=== PATIENT | male | born 1990 | race Caucasian/White ===

== ENCOUNTER 2022-05-17 18:24 | Inpatient (IN) | payer OTHER, SELFPAY ==
[2022-05-17 19:04] VITALS: BP 123/87; PULSE 93; RESP 18; TEMP 36.9; O2SAT 97; BMI 27.8
--- NOTE | 2022-05-17 19:06 | ED_ITS ---
HPI - Psych General Chief Complaint: Psychiatric Symptoms <KATE Gibson Last Filed: 05/17/22 19:12> Stated Complaint: crisis eval sent from [facility] [place] <KATE Gibson Last Filed: 05/17/22 19:12> Time Seen by Provider: 05/17/22 19:28 <KATE Gibson Last Filed: 05/17/22 19:12> Source: patient <KATE Elizalde Last Filed: 05/17/22 20:42> Mode of arrival: ambulatory <KATE Elizalde - Last Filed: 05/17/22 20:42> Limitations: no limitations <KATE Elizalde Last Filed: 05/17/22 20:42> History of Present Illness HPI Narrative: 32-year-old male presents with anxiety, depression coming from a crisis center in [place] he was advised to come in. Patient tells me has been feeling this way for a while. Unable to tell me what is making this worse but also tells me he does not want to talk about his feelings. Denies visual, auditory and tactile hallucinations. Denies suicidal and homicidal ideation. Not currently taking any medications for this. Has never required psychiatric admission. Patient tells me he drinks daily to cope with his problems, drinks 1 bottle of vodka a day, never had a history of alcohol withdrawal. Last drink was prior to arrival in to the hospital. Denies drugs, tobacco. No medical complaints today. <KATE Elizalde Last Filed: 05/17/22 20:42> Related Data Home Medications: Home Medications Medication Instructions Recorded Confirmed No Known Home Meds 05/17/22 05/17/22 <KATE Gibson Last Filed: 05/17/22 19:12> Allergies/Adverse Reactions: Allergies Allergy/AdvReac Type Severity Reaction Status Date / Time No Known Allergies Allergy Verified 05/17/22 19:04 [No Known Allergies*] <KATE Gibson Last Filed: 05/17/22 19:12> Review of Systems Review of Systems: Constitutional : No Fever, No Chills ENT/Mouth : No Ear Pain, No Nasal Congestion, No sore throat Eyes: No Eye Pain, No Swelling, No Redness Cardiovascular : No Chest Pain, No SOB Respiratory : No Cough, No Sputum, No Dyspnea Gastrointestinal : No Nausea, No Vomiting, No Diarrhea, No Hematochezia, No Melena Genitourinary : No Dysuria, No Urinary Frequency, No Hematuria Musculoskeletal : No Myalgias Skin : No Skin Lesions, No rash Neuro : No Weakness, No Numbness, No Paresthesias, No Dizziness, No Headache Psych : positive Anxiety, positive Depression, No SI/HI Heme/Lymph: No Lymphadenopathy Endocrine : No Polyuria, No Polydipsia All other systems reviewed and are negative <KATE Elizalde - Last Filed: 05/17/22 20:42> Yes all other systems are reviewed and are negative <KATE Elizalde - Last Filed: 05/17/22 20:42> [facility] Past Medical History Attestation statement: The following information was validated with the patient. <KATE Elizalde - Last Filed: 05/17/22 20:42> Source: old records reviewed and nursing notes reviewed <KATE Elizalde - Last Filed: 05/17/22 20:42> Social History Social History: Social History Advance Directives: No Advance Directives Information Provided: No <KATE Gibson - Last Filed: 05/17/22 19:12> Physical Exam Vital Signs: Vital Signs: Last Vital Signs Temp 98.4 F 05/17/22 19:04 Pulse 93 05/17/22 19:04 Resp 18 05/17/22 19:04 BP 123/87 05/17/22 19:04 Pulse Ox 97 05/17/22 19:04 O2 Del Method 05/17/22 19:04 BMI result Body Mass Index 27.8 <KATE Gibson - Last Filed: 05/17/22 19:12> Vital Signs: Last Vital Signs Temp 98.4 F 05/17/22 19:04 Pulse 93 05/17/22 19:04 Resp 18 05/17/22 19:04 BP 123/87 05/17/22 19:04 Pulse Ox 97 05/17/22 19:04 O2 Del Method 05/17/22 19:04 BMI result Body Mass Index 27.8 vss <KATE Elizalde - Last Filed: 05/17/22 20:42> Appearance: Alert.? Oriented X3.? No acute distress.? Head: Normocephalic, atraumatic, no step-offs or deformities Eyes: Pupils equal, round and reactive to light.? Neck: Normal inspection.? Neck supple.? CVS: Normal heart rate and rhythm.? Pulses normal.? Respiratory: No respiratory distress.? Breath sounds normal.? Abdomen: Soft and nontender.? Skin: Skin warm and dry.? Normal skin color.? Normal skin turgor.? Extremities: No lower extremity edema.? No calf ttp. 5/5 strength to bilateral upper and lower extremities Back: No midline tenderness, no C-spine tenderness, full range of motion, no CVA tenderness bilaterally Neuro: Oriented X 3.? No motor deficit.? No sensory deficit. CN 2-12 intact <KATE Elizalde - Last Filed: 05/17/22 20:42> Course Course Course Narrative: RME- 19:07PM - 32yoM presenting to the ER after he was sent from [facility] and she could be requesting for ?more help?. Patient is very vague reports he does not really want to talk about in triage. Reports increased anxiety/depression. Denies any SI/HI/auditory or visual hallucinations thoughts of self-injury. Reports he drinks alcohol. Reports he occasionally uses cocaine last use on Tuesday. Used to take meds for psoriasis otherwise does not take any other medication and is not currently on medications. Currently homeless at this time. Currently unemployed for months. Noted to have psoriasis rash to neck and arms. No signs of infection. Plan: Labs, EKG patient will be sent back to the waiting room to Be evaluate in the behavior health thoughts <KATE Gibson - Last Filed: 05/17/22 19:12> Reevaluation(s) Reevaluation #1: CBC within normal limits. Chemistry with no acute electrolyte abnormalities requiring intervention. UA clean. Patient is positive for cocaine, marijuana. Ethanol level of 101. Patient will be in inpatient bed search. [facility] protocol ordered to ensure patient does not going to alcohol withdrawal. At this time no signs of acute alcohol withdrawal. Time observation was started patient calm cooperative no acute distress. <KATE Elizalde - Last Filed: 05/17/22 20:42> Time: 20:41 <KATE Elizalde - Last Filed: 05/17/22 20:42> Medical Decision Making Medical Decision Making [facility] Narrative: 2034 This is a 32-year-old male presenting with anxiety, depression, alcohol abuse. Physical exam benign. Likely anxiety, depression. Possible alcohol intoxication. Unlikely alcohol withdrawal. I do not suspect metabolic derangements. I was informed by the behavioral health team that patient is a voluntary bed search. Plan medical clearance evaluation by the behavioral health team. <KATE Elizalde - Last Filed: 05/17/22 20:42> Differential Diagnosis Differential Diagnoses: The differential diagnosis associated with the presentation includes <KATE Elizalde - Last Filed: 05/17/22 20:42> Likely anxiety, depression. Possible alcohol intoxication. Unlikely alcohol withdrawal. I do not suspect metabolic derangements. <KATE Elizalde - Last Filed: 05/17/22 20:42> Admission/Observation Consideration of admission/observation: Escalation of care including admission/observation considered <KATE Elizalde - Last Filed: 05/17/22 20:42> Lab Data [facility] Lab Attestation statement: I reviewed the patient's lab results. <KATE Elizalde - Last Filed: 05/17/22 20:42> Result Diagrams: 05/17/22 19:39 05/17/22 19:39 <KATE Gibson - Last Filed: 05/17/22 19:12> Labs: Lab Results 05/17/22 05/17/22 05/17/22 Range/Units 19:39 19:39 19:39 WBC 7.2 (4.8-10.8) X10*3/uL RBC 5.02 (4.60-5.80) X10*6/uL Hgb 15.7 (14.0-18.0) g/dl Hct 44.9 (42.0-52.0) % MCV 89.4 (80.0-98.0) fL MCH 31.3 (27.0-33.0) pg MCHC 35.0 (31.0-36.0) g/dl RDW 12.4 (11.0-16.0) % Plt Count 344 (160-400) X10*3/uL MPV 8.7 L (9.4-12.4) fL Immature Gran % (Auto) 0.3 (0.0-0.4) % Neut % (Auto) 62.2 (45-73) % Lymph % (Auto) 29.8 (20-40) % Cache % (Auto) 6.1 (2-11) % Eos % (Auto) 1.2 (0-4) % Baso % (Auto) 0.4 (0-2) % Lymph # (Auto) 2.2 (1.2-4.9) X10*3/uL Cache # (Auto) 0.4 (0.1-1.2) X10*3/uL Eos # (Auto) 0.1 (0.0-0.4) X10*3/uL Baso # (Auto) 0.0 (0.0-0.2) X10*3/uL Abs Immat Gran (auto) 0.02 (0.00-0.03) X10*3/uL Absolute Neuts (auto) 4.5 (2.0-8.3) x10*3/uL Absolute Nucleated RBC 0.000 (0.0-0.012) X10*3/uL Nucleated RBC % (auto) 0.0 (0.0-0.2) /100WBC PT 10.3 (10.0-13.1) SEC INR 0.9 (0.9-1.1) Sodium 143 (135-145) mmol/L Potassium 3.8 (3.3-5.1) mmol/L Chloride 107 (96-108) mmol/L Carbon Dioxide 26 (22-29) mmol/L Anion Gap 14 (12-20) BUN 5 L (9-16) mg/dL Creatinine 1.12 (0.5-1.4) mg/dL Estim Creat Clear Calc 108.0 Estimated GFR > 60 Random Glucose 84 (60-115) mg/dL Calcium 9.2 (8.4-10.2) mg/dL Magnesium 2.1 (1.6-2.6) mg/dL Total Bilirubin 0.5 (0.0-1.0) mg/dL AST 21 (5-37) U/L ALT 18 (0-40) U/L Alkaline Phosphatase 105 (39-117) U/L Total Protein 7.1 (6.5-8.0) g/dL Albumin 4.2 (3.5-5.0) g/dL Lipase 15 (8-78) U/L Urine Color Urine Appearance Urine pH (5.0-9.0) Ur Specific [place] (1.005-1.025) Urine Protein (Neg-Trace) mg/dL Urine Glucose (UA) (Negative) mg/dL Urine Ketones (Negative) mg/dL Urine Blood (Negative) Urine Nitrite (Negative) Ur Leukocyte Esterase (Negative) Urine Opiates Screen (Not Detect) Urine Fentanyl Screen (Not Detect) Ur Barbiturates Screen (Not Detect) Ur Phencyclidine Scrn (Not Detect) Ur Amphetamines Screen (Not Detect) U Benzodiazepines Scrn (Not Detect) Urine Cocaine Screen (Not Detect) U Marijuana (THC) Screen (Not Detect) Ethyl Alcohol 101 mg/dL 05/17/22 05/17/22 Range/Units 19:39 19:39 WBC (4.8-10.8) X10*3/uL RBC (4.60-5.80) X10*6/uL Hgb (14.0-18.0) g/dl Hct (42.0-52.0) % MCV (80.0-98.0) fL MCH (27.0-33.0) pg MCHC (31.0-36.0) g/dl RDW (11.0-16.0) % Plt Count (160-400) X10*3/uL MPV (9.4-12.4) fL Immature Gran % (Auto) (0.0-0.4) % Neut % (Auto) (45-73) % Lymph % (Auto) (20-40) % Cache % (Auto) (2-11) % Eos % (Auto) (0-4) % Baso % (Auto) (0-2) % Lymph # (Auto) (1.2-4.9) X10*3/uL Cache # (Auto) (0.1-1.2) X10*3/uL Eos # (Auto) (0.0-0.4) X10*3/uL Baso # (Auto) (0.0-0.2) X10*3/uL Abs Immat Gran (auto) (0.00-0.03) X10*3/uL Absolute Neuts (auto) (2.0-8.3) x10*3/uL Absolute Nucleated RBC (0.0-0.012) X10*3/uL Nucleated RBC % (auto) (0.0-0.2) /100WBC PT (10.0-13.1) SEC INR (0.9-1.1) Sodium (135-145) mmol/L Potassium (3.3-5.1) mmol/L Chloride (96-108) mmol/L Carbon Dioxide (22-29) mmol/L Anion Gap (12-20) BUN (9-16) mg/dL Creatinine (0.5-1.4) mg/dL Estim Creat Clear Calc Estimated GFR Random Glucose (60-115) mg/dL Calcium (8.4-10.2) mg/dL Magnesium (1.6-2.6) mg/dL Total Bilirubin (0.0-1.0) mg/dL AST (5-37) U/L ALT (0-40) U/L Alkaline Phosphatase (39-117) U/L Total Protein (6.5-8.0) g/dL Albumin (3.5-5.0) g/dL Lipase (8-78) U/L Urine Color Yellow Urine Appearance Clear Urine pH 6.5 (5.0-9.0) Ur Specific [place] <= 1.005 (1.005-1.025) Urine Protein Negative (Neg-Trace) mg/dL Urine Glucose (UA) Negative (Negative) mg/dL Urine Ketones Negative (Negative) mg/dL Urine Blood Negative (Negative) Urine Nitrite Negative (Negative) Ur Leukocyte Esterase Negative (Negative) Urine Opiates Screen Not Detected (Not Detect) Urine Fentanyl Screen Not Detected (Not Detect) Ur Barbiturates Screen Not Detected (Not Detect) Ur Phencyclidine Scrn Not Detected (Not Detect) Ur Amphetamines Screen Not Detected (Not Detect) U Benzodiazepines Scrn Not Detected (Not Detect) Urine Cocaine Screen POSITIVE H (Not Detect) U Marijuana (THC) Screen POSITIVE H (Not Detect) Ethyl Alcohol mg/dL <Leslee Dhillon, PA - Last Filed: 05/17/22 19:12> Lab Results 05/17/22 05/17/22 05/17/22 Range/Units 19:39 19:39 19:39 WBC 7.2 (4.8-10.8) X10*3/uL RBC 5.02 (4.60-5.80) X10*6/uL Hgb 15.7 (14.0-18.0) g/dl Hct 44.9 (42.0-52.0) % MCV 89.4 (80.0-98.0) fL MCH 31.3 (27.0-33.0) pg MCHC 35.0 (31.0-36.0) g/dl RDW 12.4 (11.0-16.0) % Plt Count 344 (160-400) X10*3/uL MPV 8.7 L (9.4-12.4) fL Immature Gran % (Auto) 0.3 (0.0-0.4) % Neut % (Auto) 62.2 (45-73) % Lymph % (Auto) 29.8 (20-40) % Cache % (Auto) 6.1 (2-11) % Eos % (Auto) 1.2 (0-4) % Baso % (Auto) 0.4 (0-2) % Lymph # (Auto) 2.2 (1.2-4.9) X10*3/uL Cache # (Auto) 0.4 (0.1-1.2) X10*3/uL Eos # (Auto) 0.1 (0.0-0.4) X10*3/uL Baso # (Auto) 0.0 (0.0-0.2) X10*3/uL Abs Immat Gran (auto) 0.02 (0.00-0.03) X10*3/uL Absolute Neuts (auto) 4.5 (2.0-8.3) x10*3/uL Absolute Nucleated RBC 0.000 (0.0-0.012) X10*3/uL Nucleated RBC % (auto) 0.0 (0.0-0.2) /100WBC PT 10.3 (10.0-13.1) SEC INR 0.9 (0.9-1.1) Sodium 143 (135-145) mmol/L Potassium 3.8 (3.3-5.1) mmol/L Chloride 107 (96-108) mmol/L Carbon Dioxide 26 (22-29) mmol/L Anion Gap 14 (12-20) BUN 5 L (9-16) mg/dL Creatinine 1.12 (0.5-1.4) mg/dL Estim Creat Clear Calc 108.0 Estimated GFR > 60 Random Glucose 84 (60-115) mg/dL Calcium 9.2 (8.4-10.2) mg/dL Magnesium 2.1 (1.6-2.6) mg/dL Total Bilirubin 0.5 (0.0-1.0) mg/dL AST 21 (5-37) U/L ALT 18 (0-40) U/L Alkaline Phosphatase 105 (39-117) U/L Total Protein 7.1 (6.5-8.0) g/dL Albumin 4.2 (3.5-5.0) g/dL Lipase 15 (8-78) U/L Urine Color Urine Appearance Urine pH (5.0-9.0) Ur Specific [place] (1.005-1.025) Urine Protein (Neg-Trace) mg/dL Urine Glucose (UA) (Negative) mg/dL Urine Ketones (Negative) mg/dL Urine Blood (Negative) Urine Nitrite (Negative) Ur Leukocyte Esterase (Negative) Urine Opiates Screen (Not Detect) Urine Fentanyl Screen (Not Detect) Ur Barbiturates Screen (Not Detect) Ur Phencyclidine Scrn (Not Detect) Ur Amphetamines Screen (Not Detect) U Benzodiazepines Scrn (Not Detect) Urine Cocaine Screen (Not Detect) U Marijuana (THC) Screen (Not Detect) Ethyl Alcohol 101 mg/dL 05/17/22 05/17/22 Range/Units 19:39 19:39 WBC (4.8-10.8) X10*3/uL RBC (4.60-5.80) X10*6/uL Hgb (14.0-18.0) g/dl Hct (42.0-52.0) % MCV (80.0-98.0) fL MCH (27.0-33.0) pg MCHC (31.0-36.0) g/dl RDW (11.0-16.0) % Plt Count (160-400) X10*3/uL MPV (9.4-12.4) fL Immature Gran % (Auto) (0.0-0.4) % Neut % (Auto) (45-73) % Lymph % (Auto) (20-40) % Cache % (Auto) (2-11) % Eos % (Auto) (0-4) % Baso % (Auto) (0-2) % Lymph # (Auto) (1.2-4.9) X10*3/uL Cache # (Auto) (0.1-1.2) X10*3/uL Eos # (Auto) (0.0-0.4) X10*3/uL Baso # (Auto) (0.0-0.2) X10*3/uL Abs Immat Gran (auto) (0.00-0.03) X10*3/uL Absolute Neuts (auto) (2.0-8.3) x10*3/uL Absolute Nucleated RBC (0.0-0.012) X10*3/uL Nucleated RBC % (auto) (0.0-0.2) /100WBC PT (10.0-13.1) SEC INR (0.9-1.1) Sodium (135-145) mmol/L Potassium (3.3-5.1) mmol/L Chloride (96-108) mmol/L Carbon Dioxide (22-29) mmol/L Anion Gap (12-20) BUN (9-16) mg/dL Creatinine (0.5-1.4) mg/dL Estim Creat Clear Calc Estimated GFR Random Glucose (60-115) mg/dL Calcium (8.4-10.2) mg/dL Magnesium (1.6-2.6) mg/dL Total Bilirubin (0.0-1.0) mg/dL AST (5-37) U/L ALT (0-40) U/L Alkaline Phosphatase (39-117) U/L Total Protein (6.5-8.0) g/dL Albumin (3.5-5.0) g/dL Lipase (8-78) U/L Urine Color Yellow Urine Appearance Clear Urine pH 6.5 (5.0-9.0) Ur Specific [place] <= 1.005 (1.005-1.025) Urine Protein Negative (Neg-Trace) mg/dL Urine Glucose (UA) Negative (Negative) mg/dL Urine Ketones Negative (Negative) mg/dL Urine Blood Negative (Negative) Urine Nitrite Negative (Negative) Ur Leukocyte Esterase Negative (Negative) Urine Opiates Screen Not Detected (Not Detect) Urine Fentanyl Screen Not Detected (Not Detect) Ur Barbiturates Screen Not Detected (Not Detect) Ur Phencyclidine Scrn Not Detected (Not Detect) Ur Amphetamines Screen Not Detected (Not Detect) U Benzodiazepines Scrn Not Detected (Not Detect) Urine Cocaine Screen POSITIVE H (Not Detect) U Marijuana (THC) Screen POSITIVE H (Not Detect) Ethyl Alcohol mg/dL <KATE Elizalde - Last Filed: 05/17/22 20:42> Core Measures AMI core measures followed: Yes <KATE Elizalde - Last Filed: 05/17/22 20:42> Measure exclusions: not indicated <KATE Elizalde - Last Filed: 05/17/22 20:42> Critical Care Time Critical Care Time Critical Care Time: No <KATE Elizalde - Last Filed: 05/17/22 20:42> Discharge Plan Discharge Clinical Impression: Depression <KATE Gibson - Last Filed: 05/17/22 19:12> Patient Disposition: Still a Patient <KATE Gibson Last Filed: 05/17/22 19:12> Prescriptions: No Action No Known Home Meds <KATE Gibson - Last Filed: 05/17/22 19:12>
--- NOTE | 2022-05-17 19:07 | ECG_ITS ---
Test Reason : MED CLEARANCE Blood Pressure : / mmHG Vent. Rate : 085 BPM Atrial Rate : 085 BPM P-R Int : 136 ms QRS Dur : 092 ms QT Int : 388 ms P-R-T Axes : 021 004 011 degrees QTc Int : 461 ms Normal sinus rhythm Normal ECG No previous ECGs available Referred By: Leslee Dhillon Electronically Signed By:Dago Ly
[2022-05-17 19:46] LABS: MANUAL DIFF FLAG NO
[2022-05-17 19:47] LABS: Basophils Percent Auto 0.4 % (0-2); Eosinophils Absolute Auto 0.1 X10*3/uL (0.0-0.4); Eosinophils Percent Auto 1.2 % (0-4); Hematocrit 44.9 % (42.0-52.0); Hemoglobin 15.7 g/dl (14.0-18.0); Imm Gran Abs Auto 0.02 X10*3/uL (0.00-0.03); Imm Gran Pct Auto 0.3 % (0.0-0.4); Lymphocytes Absolute Auto 2.2 X10*3/uL (1.2-4.9); Lymphocytes Percent Auto 29.8 % (20-40); Mean Corpuscular Hemoglobin 31.3 pg (27.0-33.0); Mean Corpuscular Volume 89.4 fL (80.0-98.0); Mean Platelet Volume 8.7 fL (9.4-12.4); Monocytes Absolute Auto 0.4 X10*3/uL (0.1-1.2); Monocytes Percent Auto 6.1 % (2-11); Neutrophils Absolute Auto 4.5 x10*3/uL (2.0-8.3); Neutrophils Percent Auto 62.2 % (45-73); Platelet Count 344 X10*3/uL (160-400); Red Blood Count 5.02 X10*6/uL (4.60-5.80); Red Cell Distribution Width 12.4 % (11.0-16.0); White Blood Count 7.2 X10*3/uL (4.8-10.8)
[2022-05-17 19:48] LABS: Appearance Urine Clear; Color Urine Yellow; Glucose Urine UA Negative (Negative); Leukocyte Esterase Urine Negative (Negative); Nitrite Urine Negative (Negative); PH 6.5 (5.0-9.0); Specific Gravity - Urine <= 1.005 (1.005-1.025); Urine Blood Negative (Negative); Urine Ketones Negative (Negative); Urine Protein Negative (Neg-Trace)
[2022-05-17 20:01] LABS: Amphetamine Screen Urine Not Detected (Not Detect); Barbiturates, Urine Not Detected (Not Detect); Benzodiazepines Screen Urine Not Detected (Not Detect); Cannabinoid Screen Urine POSITIVE (Not Detect); Cocaine Screen Urine POSITIVE (Not Detect); Fentanyl, urine Not Detected (Not Detect); INTERNATIONAL NORM RATIO 0.9 (0.9-1.1); Opiate Screen Urine Not Detected (Not Detect); Phencyclidine Screen Urine Not Detected (Not Detect); Prothrombin Time 10.3 SEC (10.0-13.1)
[2022-05-17 20:08] LABS: Alanine Aminotransferase 18 U/L (0-40); Albumin Level 4.2 g/dL (3.5-5.0); Alkaline Phosphatase 105 U/L (39-117); Anion Gap 14 (12-20); Aspartate Amino Transferase 21 U/L (5-37); Bilirubin Total 0.5 mg/dL (0.0-1.0); Blood Urea Nitrogen 5 mg/dL (9-16); Calcium 9.2 mg/dL (8.4-10.2); Carbon Dioxide 26 mmol/L (22-29); Chloride 107 mmol/L (96-108); Estimated Glomerular Filt Rate > 60; Ethanol 101 mg/dL; Glucose Random 84 mg/dL (60-115); Lipase 15 U/L (8-78); Magnesium 2.1 mg/dL (1.6-2.6); Potassium 3.8 mmol/L (3.3-5.1); Sodium 143 mmol/L (135-145); Total Protein 7.1 g/dL (6.5-8.0)
[2022-05-17 20:31] LABS: Influenza A PCR NEGATIVE (Negative); Influenza B PCR NEGATIVE (Negative); Resp Syncy Virus RNA Qual PCR NEGATIVE (Negative); SARS COV2 PCR INHOUSE NEGATIVE (Negative)
[2022-05-17] MEDS: Acetaminophen 325 MG TABLET 975 MG PO (22:23)
[2022-05-17] MEDS: LORazepam 1 MG TABLET PO (22:23)
[2022-05-18 06:16] VITALS: BP 135/90; PULSE 89; RESP 16; TEMP 36.8; O2SAT 98
--- NOTE | 2022-05-18 07:50 | PC.NURSE ---
pt is a/o x 3 no sob/sharmaine noted speaks in full sentences. pt c/o 09/13 generalized body pain/disc. pt is eating breakfast.
[2022-05-18 11:35] VITALS: BP 140/90; PULSE 85; RESP 18; TEMP 36.4; O2SAT 99
[2022-05-18] MEDS: Ibuprofen 600 MG TABLET PO (13:40)
--- NOTE | 2022-05-18 16:10 | PC.NURSE ---
pt sleeping at this time, respirations even and unlabored, skin pwd. Pt agreed with giving sister telephone updates. Sister did call and she was updated on the plan of care
[2022-05-18 17:50] VITALS: BP 169/113; BP 171/117; PULSE 80; PULSE 88; RESP 18; O2SAT 97
[2022-05-18] MEDS: LORazepam 1 MG TABLET 2 MG PO ×2 (18:10→19:46)
[2022-05-18] MEDS: diphenhydrAMINE HCL 25 MG CAPSULE PO (18:10)
[2022-05-18] MEDS: Acetaminophen 325 MG TABLET 650 MG PO (18:11)
--- NOTE | 2022-05-18 19:14 | PC.NURSE ---
late entry: 1800: pt reporting increased anxiousness, and possible withdrawal symptoms, his CIWA score was 6. KATE gooden aware, medications ordered and adminstered per MAR
[2022-05-18 19:39] VITALS: BP 151/103; PULSE 90; RESP 17; TEMP 36.6; O2SAT 98
[2022-05-18 22:51] VITALS: BP 148/100
[2022-05-19] MEDS: traZODone HCL 50 MG TABLET PO (00:05)
[2022-05-19] MEDS: LORazepam 1 MG TABLET PO ×4 (00:05→20:28)
--- NOTE | 2022-05-19 00:35 | PC.ADMIT ---
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 [place] [facility] ED AFTER SELF PRESENTING FOR INCREASED SUICIDAL IDEATION, PROBLEMATIC ALCOHOL CONSUMPTION, DEPRESSION, AND ANXIETY. PT PRESENTED WITH VARIOUS PLANS OF SI INCLUDING A GUN, DROWNING OR SUFFOCATION. PT CURRENTLY REPORTS VAGUE SI THOUGHTS WITH NO SPECIFIC PLAN. PTS TOX SCREEN WAS POSITIVE FOR COCAINE AND MARIJUANA. PT REPORTS BEING AN EVERYDAY DRINKER, DRINKING A BOTTLE OF VODKA A DAY. PT IS EXPERIENCING ALCOHOL WITHDRAWAL AND IS ON A CIWA SCALE. PT REPORTS HAVING DIFFICULTY SLEEPING THE PAST FEW DAYS. HE APPEARS TO NOT BE ATTENDING TO HIS ADLS. PT IS EATING ADEQUATELY. NO MEDICAL CONCERNS. INDEPENDENT AMBULATION. CONDITIONAL VOLUNTARY. PSYCH/DUAL GROUP. 15 MINUTE CHECKS. PT DOES NOT HAVE ANY CURRENT HEALTH CARE PROVIDERS. PT WAS COOPERATIVE DURING ADMISSION PROCESS. INSIGHT GOOD. JUDGMENT POOR. GOOD EYE CONTACT WHILE SPEAKING. PT FEELS SAFE ON THE UNIT AND WILL SEEK STAFF IF ENDORSING HARMFUL THOUGHTS. NO THOUGHTS OF HARMING OTHERS. NO NEED FOR NICOTINE REPLACEMENT PT DOES NOT SMOKE. REFUSED FLU VACCINE.
[2022-05-19] MEDS: Folic Acid 1 MG TABLET PO (08:42)
[2022-05-19] MEDS: Thiamine HCL 100 MG TABLET PO (08:42)
[2022-05-19 08:45] VITALS: BP 128/84; PULSE 132; RESP 18; TEMP 36.7; O2SAT 98
[2022-05-19 09:14] LABS: Alanine Aminotransferase 18 U/L (0-40); Albumin Level 3.6 g/dL (3.5-5.0); Alkaline Phosphatase 86 U/L (39-117); Anion Gap 11 (12-20); Aspartate Amino Transferase 21 U/L (5-37); Bilirubin Total 0.7 mg/dL (0.0-1.0); Blood Urea Nitrogen 6 mg/dL (9-16); Carbon Dioxide 30 mmol/L (22-29); Chloride 108 mmol/L (96-108); Cholesterol 157 mg/dL; Creatinine Clr Calc Pharmacy 122.2; Estimated Glomerular Filt Rate > 60; Glucose Fasting 92 mg/dL (60-99); HDL Cholesterol 53 mg/dL; LDL Cholesterol Calculated 78 mg/dl; Potassium 4.5 mmol/L (3.3-5.1); Sodium 144 mmol/L (135-145); Total Protein 6.1 g/dL (6.5-8.0); Triglycerides 131 mg/dL
[2022-05-19 09:43] LABS: Folate 11.9 ng/mL (> or = 4.0); Vitamin B12 1021 pg/mL (200-900)
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
[2022-05-19] MEDS: Magnesium Hydrox/Alum Hydrox 30 ML ORAL.SUSP PO (14:02)
[2022-05-19] MEDS: FLUoxetine HCl 10 MG CAPSULE PO (14:45)
[2022-05-19 16:15] VITALS: BP 130/82; PULSE 111; TEMP 35.8; O2SAT 97
[2022-05-19] MEDS: cloNIDine HCL 0.1 MG TABLET PO (20:27)
[2022-05-19 20:28] VITALS: BP 143/68; PULSE 102
[2022-05-19] MEDS: Acetaminophen 325 MG TABLET 650 MG PO (20:28)
[2022-05-20 07:00] VITALS: BMI 30.2
[2022-05-20] MEDS: LORazepam 1 MG TABLET PO ×3 (08:22→20:29)
[2022-05-20] MEDS: Folic Acid 1 MG TABLET PO (08:22)
[2022-05-20] MEDS: FLUoxetine HCl 10 MG CAPSULE PO (08:22)
[2022-05-20] MEDS: Thiamine HCL 100 MG TABLET PO (08:22)
[2022-05-20 08:58] VITALS: BP 148/93; PULSE 88; RESP 18; TEMP 36.6; O2SAT 98
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
--- NOTE | 2022-05-20 14:59 | PC.NURSE ---
PT SIGNED A 3 DAY NOTICWE ON 05/20 TO BE UP ON 05/25.
[2022-05-20 18:00] VITALS: BP 112/68; PULSE 78; RESP 16; TEMP 36.4; O2SAT 98
[2022-05-20] MEDS: traZODone HCL 50 MG TABLET PO (20:28)
[2022-05-20] MEDS: Acetaminophen 325 MG TABLET 650 MG PO (20:29)
[2022-05-21] MEDS: LORazepam 1 MG TABLET PO ×3 (08:50→20:10)
[2022-05-21] MEDS: FLUoxetine HCl 10 MG CAPSULE PO (08:50)
[2022-05-21] MEDS: Folic Acid 1 MG TABLET PO (08:50)
[2022-05-21] MEDS: Thiamine HCL 100 MG TABLET PO (08:50)
[2022-05-21 09:03] VITALS: BP 138/83; PULSE 109; RESP 18; TEMP 36.7; O2SAT 97
[2022-05-21] MEDS: Acetaminophen 325 MG TABLET 650 MG PO ×2 (14:09→22:36)
[2022-05-21] MEDS: hydrOXYzine HCL 25 MG TABLET PO (14:11)
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
[2022-05-21 18:00] VITALS: BP 129/88; PULSE 104; RESP 16; TEMP 36.6; O2SAT 97
[2022-05-21] MEDS: traZODone HCL 50 MG TABLET PO ×2 (20:24→22:36)
[2022-05-22] MEDS: FLUoxetine HCl 10 MG CAPSULE PO (08:35)
[2022-05-22] MEDS: LORazepam 1 MG TABLET PO (08:35)
[2022-05-22 08:39] VITALS: BP 135/76; PULSE 105; RESP 18; TEMP 36.9; O2SAT 98
[2022-05-22] MEDS: Acetaminophen 325 MG TABLET 650 MG PO (14:15)
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
[2022-05-22] MEDS: LORazepam 0.5 MG TABLET PO (19:59)
[2022-05-22] MEDS: traZODone HCL 50 MG TABLET PO (19:59)
[2022-05-22 20:26] VITALS: BP 136/87; PULSE 86
[2022-05-23] MEDS: LORazepam 0.5 MG TABLET PO ×2 (09:22→19:26)
[2022-05-23] MEDS: FLUoxetine HCl 10 MG CAPSULE PO (09:22)
[2022-05-23 09:23] VITALS: BP 133/79; PULSE 101; RESP 16; TEMP 36.6; O2SAT 96
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
[2022-05-23] MEDS: hydrOXYzine HCL 25 MG TABLET PO (14:54)
[2022-05-23 17:51] VITALS: BP 134/77; PULSE 97
[2022-05-23] MEDS: traZODone HCL 50 MG TABLET PO ×2 (21:05→21:06)
[2022-05-24] MEDS: FLUoxetine HCl 20 MG CAPSULE PO (08:51)
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
[2022-05-24 09:36] VITALS: BP 125/73; PULSE 117; RESP 18; TEMP 36.6; O2SAT 96
[2022-05-24] MEDS: Acetaminophen 325 MG TABLET 650 MG PO (14:54)
[2022-05-24] MEDS: hydrOXYzine HCL 25 MG TABLET PO (14:54)
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
[2022-05-24 16:25] VITALS: BP 120/68; PULSE 85
[2022-05-24] MEDS: LORazepam 0.5 MG TABLET PO (20:24)
[2022-05-24] MEDS: traZODone HCL 50 MG TABLET PO ×2 (20:24→21:09)
[2022-05-25] MEDS: FLUoxetine HCl 20 MG CAPSULE PO (08:25)
[2022-05-25 09:10] VITALS: BP 141/82; PULSE 97; RESP 16; TEMP 37.2; O2SAT 98
== END 2022-05-25 11:26 | disposition home or self-care (01) | DRG 751 ==
LOC: HO.ED 20:42 → HO.PM5 05-18 23:26
PROVIDERS: Physician Assistant Medical; Admitting Provider Psychiatry & Neurology Psychiatry; Emergency Provider Emergency Medicine Emergency Medical Services; PCP Internal Medicine; Visit Provider Psychiatry & Neurology Psychiatry
DX: F33.2 Major depressive disorder, recurrent severe without psychotic features (principal); R45.851 Suicidal ideations; Y90.5 Blood alcohol level of 100-119 mg/100 ml; F41.9 Anxiety disorder, unspecified; F10.229 Alcohol dependence with intoxication, unspecified; Z20.822 Contact with and (suspected) exposure to COVID-19; Z79.899 Other long term (current) drug therapy
CPT/HCPCS: 0241U; 36415; 80053; 80061; 80307; 81003; 82077; 82607; 82746; 83690; 83735; 85025; 85610; 93005; 99285; S9485